=== PATIENT | female | born 1980 ===

== ENCOUNTER 2017-04-02 16:38 | Emergency (ER) | payer MEDICAID, OTHER ==
[2017-04-02 17:22] VITALS: BMI 36.3
[2017-04-02] MEDS ORDERED: Sodium Chloride 0.9% 1,000 ML IV STA (17:24)
--- NOTE | 2017-04-02 17:28 | ED PDOC ---
Arrival/HPI - General Chief Complaint: GI Problem Time Seen by Provider: 04/02/17 17:06 Historian: Patient, Spouse - History of Present Illness Time/Duration: Other (2 days) Symptom Onset: Gradual Symptom Course: Unchanged Severity Level: Moderate Activities at Onset: Rest Associated Symptoms (Text): 04/02/17 17:25 Patient complains of a 2 day history of generalized intermittent crampy abdominal pain with severe nausea and multiple episodes of vomiting. Her vomiting resolved this morning, and severe watery diarrhea began in its place. It began with generalized myalgias and arthralgias and not feeling well. No fever or chills. No travel or exposure. Past Medical History - Gastrointestinal Hx Gastritis: Yes - Psychiatric Hx Depression: No Hx Substance Use: No - Surgical History Hx Section: Yes - Anesthesia Hx Anesthesia: No Hx Anesthesia Reactions: No Hx Malignant Hyperthermia: No - Suicidal Assessment Feels Threatened In Home Enviroment: No Family/Social History - Physician Review Nursing Documentation Reviewed: Yes Family/Social History: Unknown Family HX Smoking Status: Never Smoked Hx Alcohol Use: No Hx Substance Use: No Hx Substance Use Treatment: No Allergies/Home Meds Allergies/Adverse Reactions: Allergies latex Allergy (Verified 04/02/17 17:23) RASH Review of Systems - Physician Review All systems were reviewed & negative as marked: Yes - Review of Systems Constitutional: Fatigue. absent: Fevers Respiratory: Normal. absent: SOB, Cough Cardiovascular: Normal. absent: Chest Pain, Palpitations, Syncope Gastrointestinal: Abdominal Pain, Diarrhea, Nausea, Vomiting, Anorexia. absent : Constipation Genitourinary Female: absent: Dysuria, Frequency, Hematuria Neurological: absent: Headache, Dizziness, Focal Weakness Physical Exam Vital Signs Temp Pulse Resp BP Pulse Ox 04/02/17 17:24 98.6 F 95 H 18 114/78 99 Temperature: Afebrile Blood Pressure: Normal Pulse: Regular Respiratory Rate: Normal Appearance: Positive for: Well-Appearing, Non-Toxic, Comfortable, Uncomfortable Pain Distress: None Mental Status: Positive for: Alert and Oriented X 3 - Systems Exam Head: Present: Atraumatic, Normocephalic Pupils: Present: PERRL Extroacular Muscles: Present: EOMI Conjunctiva: Present: Normal Mouth: Present: Dry Pharnyx: No: ERYTHEMA, EXUDATE, TONSILS ENLARGED Neck: Present: Normal Range of Motion. No: MIDLINE TENDERNESS, Paraspinal Tenderness Respiratory/Chest: Present: Clear to Auscultation, Good Air Exchange, Decreased Breath Sounds. No: Respiratory Distress, Accessory Muscle Use Cardiovascular: Present: Regular Rate and Rhythm, Normal S1, S2. No: Murmurs Abdomen: Present: Normal Bowel Sounds, Scars, Other (Status post cholecystectomy ). No: Tenderness, Distention, Peritoneal Signs, Rebound, Guarding Back: Present: Normal Inspection Upper Extremity: Present: Normal Inspection. No: Cyanosis, Edema Lower Extremity: Present: Normal Inspection. No: Edema Neurological: Present: GCS=15, CN II-XII Intact, Speech Normal, Motor Func Grossly Intact Skin: Present: Warm, Dry, Normal Color. No: Rashes Psychiatric: Present: Alert, Oriented x 3, Normal Insight, Normal Concentration Medical Decision Making ED Course and Treatment: 04/02/17 19:05 Symptoms are markedly improved. Discharged home accompanied by . Follow- up with PMD. Follow-up in the ER as needed. - Lab Interpretations Lab Results: 04/02/17 17:55 04/02/17 17:55 Lab Results 04/02/17 17:55: Sodium 140, Potassium 3.8, Chloride 104, Carbon Dioxide 22, Anion Gap 18, BUN 13, Creatinine 0.7, Est GFR ( Amer) > 60, Est GFR (Non- Af Amer) > 60, Random Glucose 97, Calcium 9.3, Total Bilirubin 0.7, AST 27, ALT 34, Alkaline Phosphatase 62, Total Protein 8.1, Albumin 4.3, Globulin 3.7, Albumin/Globulin Ratio 1.2, Lipase 27 04/02/17 17:55: WBC 10.6 D, RBC 4.49, Hgb 14.1, Hct 41.3, MCV 92.0, MCH 31.4, MCHC 34.1, RDW 12.8, Plt Count 197, MPV 11.6 H, Gran % 80.7 H, Lymph % (Auto) 7.6 L, [place] % (Auto) 11.4 H, Eos % (Auto) 0.2 L, Baso % (Auto) 0.1, Gran # 8.54 H, Lymph # 0.8 L, [place] # 1.2 H, Eos # 0.0, Baso # 0.01 - Medication Orders Current Medication Orders: Discontinued Medications Sodium Chloride (Sodium Chloride 0.9%) 1,000 mls @ 1,000 mls/hr IV .Q1H STA Stop: 04/02/17 18:23 Last Admin: 04/02/17 17:43 Dose: 1,000 mls/hr Ondansetron HCl (Zofran Inj) 4 mg IVP STAT STA Stop: 04/02/17 17:25 Last Admin: 04/02/17 17:42 Dose: 4 mg Pantoprazole Sodium (Protonix Inj) 40 mg IVP STAT STA Stop: 04/02/17 17:25 Last Admin: 04/02/17 17:42 Dose: 40 mg Disposition/Present on Arrival - Present on Arrival Any Indicators Present on Arrival: No History of DVT/PE: No History of Uncontrolled Diabetes: No Urinary Catheter: No History of Decub. Ulcer: No History Surgical Site Infection Following: None - Disposition Have Diagnosis and Disposition been Completed?: Yes Diagnosis: Gastroenteritis, Nausea vomiting and diarrhea Disposition: HOME/ ROUTINE Disposition Time: 19:05 Patient Plan: Discharge Condition: IMPROVED Discharge Instructions (ExitCare): Gastroenteritis (ED), Acute Nausea and Vomiting (ED), Acute Diarrhea (ED), Acute Abdominal Pain (ED) Prescriptions: Pantoprazole Sodium [Protonix] 40 mg PO DAILY #20 ect Ondansetron [Zofran Odt] 4 mg SL Q6 #20 odt
[2017-04-02 17:47] VITALS: O2SAT 99
[2017-04-02 18:05] LABS: BASO # 0.01 K/mm3 (0.0-2.0); BASO % 0.1 % (0.0-3.0); EOS % 0.2 % (1.5-5.0); GRAN # 8.54 (1.4-6.5); GRAN % 80.7 % (50.0-68.0); HEMOGLOBIN 14.1 gm/dL (12.0-16.0); LYMPH # 0.8 (1.2-3.4); LYMPH % 7.6 % (22.0-35.0); MEAN CORPUSCULAR HEMOGLOBIN 31.4 pg (25.0-35.0); MEAN CORPUSCULAR HGB CONC 34.1 g/dl (31.0-37.0); MEAN PLATELET VOLUME 11.6 fl (7.0-11.0); MONO # 1.2 (0.1-0.6); MONO % 11.4 % (1.0-6.0); PLATELET COUNT 197 10^3/uL (120.0-450.0); RBC 4.49 10^6/uL (3.5-6.1); RED CELL DISTRIBUTION WIDTH 12.8 % (11.5-14.5); WHITE BLOOD COUNT 10.6 10^3/ul (4.5-11.0)
[2017-04-02 18:56] LABS: ALB/GLOB RATIO 1.2 (1.1-1.8); ALBUMIN 4.3 g/dL (3.0-4.8); ALT/SGPT 34 U/L (7-56); AST/SGOT 27 U/L (15-39); BLOOD UREA NITROGEN 13 mg/dL (7-21); CALCIUM 9.3 mg/dL (8.4-10.5); GFR AFRICAN-AMERICAN > 60; GFR NON-AFRICAN AMERICAN > 60; LIPASE 27 U/L (23-300)
[2017-04-02 19:46] VITALS: BP 119/68; PULSE 76; RESP 16; TEMP 97.8
== END 2017-04-02 19:48 | disposition home or self-care (01) ==
LOC: ED 16:38
DX: K52.9 Noninfective gastroenteritis and colitis, unspecified (principal)
CPT/HCPCS: 80053; 83690; 85025; 96361; 96374; 96375; 99285; C9113; J2405; J7040

== ENCOUNTER 2018-06-14 22:28 | Emergency (ER) | payer MEDICAID ==
[2018-06-14 23:13] VITALS: TEMP 98.3; BMI 37.2
[2018-06-14] MEDS ORDERED: Sodium Chloride 0.9% 1,000 ML IV STA (23:20)
--- NOTE | 2018-06-14 23:25 | ED PDOC ---
Addendum entered and electronically signed by Chin MORILLO,Farida Garcia PA-C 06/17/18 16:34: Addendum Addendum: 06/17/18 16:33 Urine cx : +proteus mirabilis, resistant to macrobid, sensitive to cipro which is preg cat C. Pt called, notified of results, advised to d/c macrobid. Pt is 16 wks . Advised to f/u w/ her OB bruce w/o fail regarding urine cx results and to determine the best antibiotic to take. Pt verbalize understanding of instructions and intends to f/u. Original Note: Arrival/HPI <Frank Klein - Last Filed: 06/15/18 01:03> - General Historian: Patient - History of Present Illness Narrative History of Present Illness (Text): 06/14/18 23:22 37 y/o female, approx. 16 weeks , pmh including gerd, nkda, surgical history of cholecystomy, c/o upper abdominal pain x 3 days with no fall or trauma. Aching pain, on and off, upper abdominal region and more on epigastric, no vomiting, no nausea, no diarrhea, no urinary symptoms, no night sweat, no dizziness, no change in vision, no other medical or psychological complaints. <Ayden Wallace - Last Filed: 06/15/18 14:12> - General Time Seen by Provider: 06/14/18 22:54 Past Medical History - Provider Review Nursing Documentation Reviewed: Yes - Gastrointestinal Hx Gastritis: Yes - Psychiatric Hx Depression: No Hx Substance Use: No - Surgical History Hx Section: Yes - Anesthesia Hx Anesthesia: No Hx Anesthesia Reactions: No Hx Malignant Hyperthermia: No - Suicidal Assessment Feels Threatened In Home Enviroment: No <Ayden Wallace - Last Filed: 06/15/18 14:12> Family/Social History - Physician Review Nursing Documentation Reviewed: Yes Family/Social History: Unknown Family HX Smoking Status: Never Smoked Hx Alcohol Use: No Hx Substance Use: No Hx Substance Use Treatment: No <Ayden Wallace - Last Filed: 06/15/18 14:12> Allergies/Home Meds <Frank Klein - Last Filed: 06/15/18 01:03> <Ayden Wallace - Last Filed: 06/15/18 14:12> Allergies/Adverse Reactions: Allergies latex Allergy (Verified 04/02/17 17:23) RASH Home Medications: Home Meds Medication Instructions Recorded Confirmed Nifedipine [Procardia] 10 mg PO TID 06/14/18 06/14/18 Review of Systems - Review of Systems Constitutional: absent: Fatigue, Fevers Eyes: absent: Vision Changes ENT: absent: Hearing Changes Respiratory: absent: SOB, Cough, Sputum Cardiovascular: absent: Chest Pain Gastrointestinal: Abdominal Pain. absent: Diarrhea, Nausea, Vomiting Musculoskeletal: absent: Arthralgias, Back Pain Skin: absent: Rash, Pruritis, Skin Lesions Neurological: absent: Headache, Dizziness Psychiatric: absent: Anxiety, Depression, Suicidal Ideation <Ayden Wallace - Last Filed: 06/15/18 14:12> Physical Exam Vital Signs Temp Pulse Resp BP Pulse Ox 06/14/18 23:00 98.3 F 81 16 134/80 100 <Frank Klein - Last Filed: 06/15/18 01:03> Vital Signs Reviewed: Yes Vital Signs Temp Pulse Resp BP Pulse Ox 06/14/18 23:00 98.3 F 81 16 134/80 100 Temperature: Afebrile Blood Pressure: Normal Pulse: Regular Respiratory Rate: Normal Appearance: Positive for: Well-Appearing, Non-Toxic, Comfortable Pain Distress: Moderate Mental Status: Positive for: Alert and Oriented X 3 - Systems Exam Head: Present: Atraumatic, Normocephalic Pupils: Present: PERRL Extroacular Muscles: Present: EOMI Conjunctiva: Present: Normal Mouth: Present: Moist Mucous Membranes Neck: Present: Normal Range of Motion Respiratory/Chest: Present: Clear to Auscultation, Good Air Exchange. No: Respiratory Distress, Accessory Muscle Use Cardiovascular: Present: Regular Rate and Rhythm, Normal S1, S2. No: Murmurs Abdomen: Present: Tenderness (epigastric region). No: Distention, Peritoneal Signs, Rebound, Guarding Genitourinary/Pelvic Exam: Present: Other (Pt. declined as she has no pelvic or obgyn complaints. ) Back: Present: Normal Inspection Upper Extremity: Present: Normal Inspection. No: Cyanosis, Edema Lower Extremity: Present: Normal Inspection. No: Edema Neurological: Present: GCS=15, CN II-XII Intact, Speech Normal, Motor Func Grossly Intact, Gait Normal, Memory Normal Skin: Present: Warm, Dry, Normal Color. No: Rashes Psychiatric: Present: Alert, Oriented x 3, Normal Insight, Normal Concentration <Ayden Wallace - Last Filed: 06/15/18 14:12> Medical Decision Making - Lab Interpretations Lab Results: 06/14/18 23:42 06/14/18 23:42 Lab Results 06/14/18 23:42: WBC 9.9, RBC 3.61, Hgb 11.0 L, Hct 32.0 L, MCV 88.6, MCH 30.5, MCHC 34.4, RDW 12.8, Plt Count 256, MPV 10.5, Gran % 53.3, Lymph % (Auto) 37.8 H , [place] % (Auto) 6.7 H, Eos % (Auto) 1.9, Baso % (Auto) 0.3, Gran # 5.25, Lymph # (Auto) 3.7 H, [place] # (Auto) 0.7 H, Eos # (Auto) 0.2, Baso # (Auto) 0.03 06/14/18 23:42: Sodium 136, Potassium 3.8, Chloride 103, Carbon Dioxide 24, Anion Gap 13, BUN 7, Creatinine 0.6 L, Est GFR ( Amer) > 60, Est GFR (Non-Af Amer) > 60, Random Glucose 104, Calcium 9.1, Total Bilirubin 0.2, AST 37 H, ALT 49, Alkaline Phosphatase 88, Total Protein 7.5, Albumin 3.5, Globulin 4.1, Albumin/Globulin Ratio 0.9 L, Lipase 54 06/14/18 23:42: Urine Color yellow, Urine Appearance Clear, Urine pH 7.0, Ur Specific [place] 1.015, Urine Protein Trace H, Urine Glucose (UA) Negative, Urine Ketones Negative, Urine Blood Negative, Urine Nitrate Negative, Urine Bilirubin Negative, Urine Urobilinogen 1.0 H, Ur Leukocyte Esterase Small H, Urine RBC TEST NOT PERFORMED, Urine WBC 5 - 10, Ur Epithelial Cells 10 - 12, Urine Bacteria Trace - RAD Interpretation Radiology Orders: 06/14/18 23:19 ABDOMEN COMPLETE [US] Stat AGE [US] Routine - Medication Orders Current Medication Orders: Discontinued Medications Famotidine (Pepcid) 20 mg IVP STAT STA Stop: 06/14/18 23:21 Last Admin: 06/14/18 23:51 Dose: 20 mg IVP Administration Document 06/14/18 23:51 SS (Rec: 06/14/18 23:52 SS [id number]) Charges for Administration # of IVP Administrations 1 Sodium Chloride (Sodium Chloride 0.9%) 1,000 mls @ 999 mls/hr IV .Q1H1M STA Stop: 06/15/18 00:20 Last Admin: 06/14/18 23:52 Dose: 999 mls/hr eMAR Start Stop Document 06/14/18 23:52 SS (Rec: 06/14/18 23:52 SS [id number]) Intravenous Solution Start Date 06/14/18 Start Time 23:52 End Date 06/15/18 End time 00:52 Total Infusion Time 60 <Frank Klein - Last Filed: 06/15/18 01:03> ED Course and Treatment: 06/14/18 23:25 -labs/ua -abdominal sonogram -Pelvic sonogram -IVF/pepcid -Observe and reassess 06/15/18 02:00 -Abdominal sonogram show Status post cholecystectomy. Otherwise, unremarkable study. -Pelvic sonogram show Single, live intrauterine gestation with a gestational age of 17 weeks 1 day. heart rate is 162 beats per minute. Bilateral ovaries are not seen. -Labs are non-significant -Beta hcg [id number] -Lipase within normal limit -UA show +UTI, IV rocephine ordered. -Pt. still in pain, tylenol 650mg po ordered. 06/15/18 02:09 -all labs/radiology result discussed with the patient, she feels better. -Case discussed and endorsed to the ER attending Dr. Klein, evaluated the patient as well, recommend to discharge home. -Discharge home with pepcid, macrobid, tylenol, stay hydrated, follow up with your pmd and obgyn/GI within 2 days, return to the ER for any new or worsening signs or symptoms. - RAD Interpretation Narrative RAD Interpretations (Text): US Abdomen Complete Findings: The liver measures 17.2cm and is uniform echo texture without evidence of mass or defect. There is no intra or extrahepatic biliary ductal dilatation. The common bile duct measures 5.6mm. Status post cholecystectomy. There is no pericholecystic fluid. There is no abdominal ascites. The visualized portions of abdominal aorta present not abnormalities. The inferior vena cava appears to be within normal limits. The visualized portions of the pancreas are unremarkable. The spleen is of uniform echo texture and does not appear enlarged measuring 10.0 x 4.8 x 4.4 cm. The right kidney measures 10.8 x 3.9 x 6.5 cm and the left kidney measures 12.5 x 4.8 x 6.8 cm. Both kidneys are free of hydronephrosis. Impression: 1. Status post cholecystectomy. 2. Otherwise, unremarkable study. US OB 2nd Trimester FINDINGS: There is a single intrauterine gestation, cephalic presentation. Cervix measures 4.2cm. Placenta is anterior and is clear from the os. heart rate is 162 beats per minute. motion is observed. The biparietal diameter measures 3.7cm. This corresponds to a gestational age of 17 weeks and 4 days. The head circumference measures 13.4cm, corresponding to a gestational age of 17 weeks 0 days. The abdominal circumference measures 11.3cm, which corresponds to a gestational age of 17 weeks 1 day. Femur length measures 2.2cm, corresponding to a gestational age of 16 weeks 5 days. Estimated gestational age is 17 weeks 1 day. There is no evidence of free fluid in the pelvic cul-de-sac. The right and left ovaries are not seen. Impression: 1. Single, live intrauterine gestation with a gestational age of 17 weeks 1 day. 2. heart rate is 162 beats per minute. 3. Bilateral ovaries are not seen. Radiology Orders: 06/14/18 23:19 ABDOMEN COMPLETE [US] Stat Pelvis [PELVIS ULTRASOUND] [US] Routine Formula Mixer: Radiologist - Medication Orders Current Medication Orders: Famotidine (Pepcid) 20 mg IVP STAT STA Stop: 06/14/18 23:21 Sodium Chloride (Sodium Chloride 0.9%) 1,000 mls @ 999 mls/hr IV .Q1H1M STA Stop: 06/15/18 00:20 <Ayden Wallace - Last Filed: 06/15/18 14:12> - PA / DIRECTOR PERSONAL / Resident Statement ARETHA has reviewed & agrees with the documentation as recorded. <Frank Klein - Last Filed: 06/15/18 01:03> - PA / DIRECTOR PERSONAL / Resident Statement ARETHA has reviewed & agrees with the documentation as recorded. ARETHA has examined the patient and agrees with the treatment plan. <Ayden Wallace - Last Filed: 06/15/18 14:12> Disposition/Present on Arrival <Frank Klein - Last Filed: 06/15/18 01:03> - Present on Arrival Any Indicators Present on Arrival: No History of DVT/PE: No History of Uncontrolled Diabetes: No Urinary Catheter: No History of Decub. Ulcer: No History Surgical Site Infection Following: None - Disposition Have Diagnosis and Disposition been Completed?: Yes Disposition Time: 02:14 Patient Plan: Discharge <WallaceAyden Justice - Last Filed: 06/15/18 14:12> - Disposition Diagnosis: UTI (urinary tract infection), Epigastric abdominal pain Disposition: HOME/ ROUTINE Condition: IMPROVED Additional Instructions: -Discharge home with pepcid, macrobid, tylenol, stay hydrated, follow up with your pmd and obgyn/GI within 2 days, return to the ER for any new or worsening signs or symptoms. Prescriptions: Acetaminophen [Pain Relief] 500 mg PO QID PRN #30 tablet PRN Reason: Other Famotidine [Pepcid] 20 mg PO BID #14 tab Nitrofurantoin Macrocrystals [Macrobid] 100 mg PO BID #14 cap Referrals: Chicho Varela MD [Staff Provider] - Follow up with primary [facility] [Outside] - Follow up with primary Madalyn Bradley MD [Staff Provider] - Follow up with primary Forms: WORK NOTE
[2018-06-15 00:05] LABS: BASO # 0.03 K/mm3 (0.0-2.0); BASO % 0.3 % (0.0-3.0); EOS # 0.2 (0.0-0.7); EOS % 1.9 % (1.5-5.0); GRAN # 5.25 (1.4-6.5); GRAN % 53.3 % (50.0-68.0); LYMPH # 3.7 (1.2-3.4); LYMPH % 37.8 % (22.0-35.0); MEAN CELL VOLUME 88.6 fl (80.0-105.0); MEAN CORPUSCULAR HEMOGLOBIN 30.5 pg (25.0-35.0); MEAN CORPUSCULAR HGB CONC 34.4 g/dl (31.0-37.0); MEAN PLATELET VOLUME 10.5 fl (7.0-11.0); MONO # 0.7 (0.1-0.6); MONO % 6.7 % (1.0-6.0); RBC 3.61 10^6/uL (3.5-6.1); RED CELL DISTRIBUTION WIDTH 12.8 % (11.5-14.5); URINE BILIRUBIN NEGATIVE (NEGATIVE); URINE BLOOD NEGATIVE (NEGATIVE); URINE GLUCOSE (UA) NEGATIVE (NEGATIVE); URINE LEUKOCYTE ESTERASE SMALL Leu/uL (NEGATIVE); URINE PROTEIN TRACE mg/dL (<30 mg/dL); WHITE BLOOD COUNT 9.9 10^3/ul (4.5-11.0)
[2018-06-15 00:06] LABS: URINE APPEARANCE CLEAR (CLEAR)
[2018-06-15 00:10] LABS: ALB/GLOB RATIO 0.9 (1.1-1.8); ALBUMIN 3.5 g/dL (3.0-4.8); ALT/SGPT 49 U/L (7-56); AST/SGOT 37 U/L (14-36); BLOOD UREA NITROGEN 7 mg/dL (7-21); CALCIUM 9.1 mg/dL (8.4-10.5); GFR NON-AFRICAN AMERICAN > 60; LIPASE 54 U/L (23-300)
[2018-06-15 00:11] LABS: URINE BACTERIA TRACE (NEG)
[2018-06-15] MEDS ORDERED: cefTRIAXone 1 gm 1 GM/100 ML BAG IVPB STA (01:59)
[2018-06-15 03:15] VITALS: BP 132/78; PULSE 80; RESP 18
[2018-06-15 03:21] VITALS: O2SAT 99
--- NOTE | 2018-06-15 14:08 | US ---
Date of service: 06/15/2018 HISTORY: Upper abdominal pain and . COMPARISON: None. TECHNIQUE: Sonographic evaluation of the abdomen. FINDINGS: LIVER: Measures 17.2 cm. Patent portal vein. Portal venous flow: Hepatopetal. Unremarkable echogenicity of the liver parenchyma. No mass. No intrahepatic bile duct dilatation. GALLBLADDER: Status post cholecystectomy. No abnormality is seen in the gallbladder fossa. COMMON BILE DUCT: Measures 5.6 mm. No stones. No dilatation. PANCREAS: Unremarkable as visualized. No mass. No ductal dilatation. RIGHT KIDNEY: Measures 3.9 x 10.8cm. Normal echogenicity. No calculus, mass, or hydronephrosis. LEFT KIDNEY: Measures 4.8 x 12.5cm. Normal echogenicity. No calculus, mass, or hydronephrosis. SPLEEN: Normal in size and contour. No mass. AORTA: No aneurysmal dilatation. IVC: Unremarkable. OTHER FINDINGS: None. IMPRESSION: No acute findings related to/accounting for the clinical presentation. Additional benign and/or incidental findings described above. Concordant results (preliminary interpretation) provided by [facility]. Procedure Completed: 01:27. Preliminary Report: Dictated and Authenticated: 01:50. Final Interpretation: 14:06. June 15, 2018.
--- NOTE | 2018-06-15 14:27 | US ---
Date of service: 06/15/2018 PROCEDURE: Second trimester ultrasound HISTORY: , upper abdominal pain COMPARISON: None. TECHNIQUE: Standard protocol for this study/examination. FINDINGS: Cephalic presentation. Anterior placenta. No evidence of abruption or previa Gestational age derived from LMP 16 weeks 3 days. DEBORAH 11/26/2018. Gestational age derived from the following biometric parameters 17 weeks 1 day. DEBORAH 11/22/2018. Biparietal diameter 3.77 cm Head circumference 13.45 cm Abdominal circumference 11.35 cm Femur length 2.26 cm Estimated weight 177 g Calculated cardiac rate 163 beats per min. Closed cervix measuring 4.26 cm IMPRESSION: Single live intrauterine gestation. Seventeen weeks 1 day is concordant with gestational age derived from LM
== END 2018-06-15 03:20 | disposition home or self-care (01) ==
LOC: ED 22:28
DX: O23.42 Unspecified infection of urinary tract in pregnancy, second trimester (principal); R10.13 Epigastric pain; Z3A.17 17 weeks gestation of pregnancy
CPT/HCPCS: 76700; 76815; 80053; 81001; 83690; 84702; 85025; 87086; 87181; 96361; 96365; 96375; 99283; J0696; J7030